=== PATIENT | female | born 2005 | race Caucasian/White ===

== ENCOUNTER 2025-04-09 16:43 | Emergency (ER) | payer BC, SELFPAY ==
--- NOTE | ~2025-04-09 | XR_ITS ---
CLINICAL HISTORY: sob 1 view chest x-ray Comparison: None provided Findings: Left base consolidation, possible pneumonia. Right lung clear without infiltrate. No pneumothorax. Heart size normal. No acute bony abnormalities. Impression: Left base consolidation, possible pneumonia This document has been electronically signed by: Selwyn De Luna MD on 04/09/2025 20:29:54
[2025-04-09 16:50] VITALS: BP 119/67; PULSE 137; RESP 16; TEMP 38.5; O2SAT 98; BMI 22.5
--- NOTE | 2025-04-09 16:53 | ED_ITS ---
HPI - Nausea/Vomiting/Diarrhea General Chief complaint: Upper Respiratory Symptoms Stated complaint: diag w/flu/seems to be getting worse Time Seen by Provider: 04/09/25 19:20 History of Present Illness HPI Narrative: Patient is a 19-year-old female presented with coughing congestion upper respiratory symptoms flu-like symptoms ongoing since Friday. Positive diffuse body ache. Positive headache. Positive cough. Fever as high as 103 at home. 101.8 in triage. No pain on urination. Does not think she is . She is on home. Related Data Previous Rx's ?Medication ?Instructions ?Recorded doxycycline hyclate 100 mg capsule 100 mg PO BID cough 7 days #14 caps 04/09/25 ondansetron 4 mg disintegrating 4 mg PO TID PRN nausea and 04/09/25 tablet vomiting 5 days #10 tabs Allergies Allergy/AdvReac Type Severity Reaction Status Date / Time No Known Allergies Allergy Verified 04/09/25 16:54 Review of Systems 2 Review of Systems: Positive nausea vomiting positive coughing upper respiratory symptoms PMFSH Past Medical History Attestation statement: The following information was validated with the patient. Social History Social History Smoked in Last 30 Days: No Use of substances other than those prescribed or required for medical reasons: No Advance Directives: No Advance Directives Information Provided: No Do you have a plan to hurt others: No Plan Patient : No Physical Exam 2 Exam: Exam: Appearance: Alert. Oriented X3. No acute distress. Eyes: Pupils equal, round and reactive to light. ENT: Pharynx normal. Neck: Normal inspection. Neck supple. No lymph nodes noted. No crepitus CVS: Normal heart rate and rhythm. Pulses normal. Normal S1 and S2 Respiratory: No respiratory distress. Breath sounds normal. No Wheezing. No rales Abdomen: Soft and nontender. No rigidity. No distention. good BS x4 Skin: Skin warm and dry. Normal skin color. Normal skin turgor. Extremities: No lower extremity edema. Neurovascular intact to all extremities. No Lacerations. No Rash Neuro: Oriented X 3. No motor deficit. No sensory deficit. Moving all extermities. No slurred speech Vital Signs: Vital Signs: Last Vital Signs Temp 99.8 F 04/09/25 19:36 Pulse 104 H 04/09/25 19:36 Resp 23 H 04/09/25 19:36 BP 125/74 04/09/25 19:36 Pulse Ox 95 04/09/25 19:36 O2 Del Method Room Air 04/09/25 19:36 BMI result Body Mass Index 22.5 Course Course Course Narrative: This is a RME preformed in triage by Ruth Morocho PA-C. Date: 04/09/25, time?456 pm. Patient presents with n/v in setting of confirmed Influenza A dx'd via [facility] ([facility]). She is on day 4, still fevers and n/v, did not take tamiflu. She has not been treating her sxs or trying to drink 19-year-old college student presents to the ED for persistent fever and GI upset. Flu-like symptoms began nine days ago (Friday). Patient initially felt slightly better earlier this week but symptoms have worsened over the past several days. Reports daily fevers since onset. She is unable to tolerate oral intake and ?can?t keep anything down,? with emesis this afternoon; denies hematemesis. Currently nauseated. Mild, non-bloody diarrhea noted. Additional associated symptoms include cough, sore throat, generalized body aches, marked fatigue, and decreased urine output (only once since last night). She states she received the flu shot this season. Patient lives in a college dormitory. Review of Systems: Constitutional: positive for fever, fatigue. HEENT: sore throat. Respiratory: cough. Gastrointestinal: nausea, vomiting (no blood), mild diarrhea. Genitourinary: decreased urine output. Musculoskeletal: generalized body aches. Work UP:?basic labs, gave zofran and tylenol (liquid) PE: moist oral mucosa, appears flu like, not septic or toxic, Will defer full ROS and PE to treating provider. Patient will continued to be monitored in the interim. Medications Administered Discontinued Medications Generic Name Dose Route Start Last Admin Trade Name Freq PRN Reason Stop Dose Admin Acetaminophen 650 mg 04/09/25 16:53 04/09/25 16:58 Acetaminophen Oral Liquid 650 Mg/20.3 Ml Solution PO 04/09/25 16:54 650 mg ONCE ONE Administration Sodium Chloride 1,000 mls @ 999 mls/hr 04/09/25 19:30 04/09/25 19:50 Ns IV 04/09/25 20:30 999 mls/hr .Q1H1M ARMINDA Administration Ketorolac Tromethamine 15 mg 04/09/25 19:29 04/09/25 19:59 Ketorolac Tromethamine 15 Mg/Ml Vial IVPUSH 04/09/25 19:30 15 mg ONCE ONE Administration Ondansetron HCl 4 mg 04/09/25 16:53 04/09/25 16:56 Ondansetron Odt 4 Mg Tab.Rapdis TRANSLINGU 04/09/25 16:54 4 mg ONCE ONE Administration Medical Decision Making Medical Decision Making MDM Narrative: Patient given IV fluids. COVID flu RSV came back positive for influenza. O2 sats 96% on room air. No distress. Symptoms x5 days. Not a good candidate for Tamiflu. Chest x-ray showed a question left lower lobe infiltrate. Will start patient on doxycycline. White count was 16. Patient to be discharged home on a course of doxycycline. Close follow-up advised. Patient's O2 sat is normal well-appearing will give an additional L of fluids and then discharge patient home. Differential Diagnosis Differential Diagnoses: The differential diagnosis associated with the presentation includes Influenza, pneumonia, COVID , dehydration Admission/Observation Consideration of admission/observation: Escalation of care including admission/observation considered Lab Data [facility] Lab Attestation statement: I reviewed the patient's lab results. 04/09/25 17:07 04/09/25 17:07 Labs: Lab Results 04/09/25 04/09/25 Range/Units 17:07 20:02 WBC 15.9 H (4.8-10.8) X10*3/uL RBC 4.58 (4.20-5.50) X10*6/uL Hgb 12.6 (12.0-16.0) g/dl Hct 37.4 (37.0-47.0) % MCV 81.7 (80.0-98.0) fL MCH 27.5 (27.0-33.0) pg MCHC 33.7 (31.0-35.0) g/dl RDW 12.9 (11.0-16.0) % Plt Count 243 (160-400) X10*3/uL MPV 10.4 (9.4-12.3) fL Immature Gran % (Auto) Cancelled Neut % (Auto) Cancelled Lymph % (Auto) Cancelled [place] % (Auto) Cancelled Eos % (Auto) Cancelled Baso % (Auto) Cancelled Lymph # (Auto) Cancelled [place] # (Auto) Cancelled Eos # (Auto) Cancelled Baso # (Auto) Cancelled Abs Immat Gran (auto) Cancelled Absolute Neuts (auto) Cancelled Absolute Nucleated RBC 0.000 (0.0-0.012) X10*3/uL Nucleated RBC % (auto) 0.0 (0.0-0.2) /100WBC Neutrophils % (Manual) 79 H (45-73) % Band Neutrophils % 13 H (3-5) % Lymphocytes % (Manual) 5 L (20-40) % Monocytes % (Manual) 3 (2-11) % Abs Neuts (Manual) 14.6 H (2.0-8.3) X10*3/uL Lymphocytes # (Manual) 0.8 L (1.2-4.9) X10*3/uL Monocytes # (Manual) 0.5 (0.1-1.2) X10*3/uL Platelet Estimate NORMAL (NORMAL) Plt Morphology Comment NORM RBC Morphology NOTED Microcytosis 1+ (5-14) /OIF Sodium 138 (135-145) mmol/L Potassium 3.8 (3.3-5.1) mmol/L Chloride 104 (96-108) mmol/L Carbon Dioxide 24 (22-29) mmol/L Anion Gap 14 (12-20) BUN 6 L (9-16) mg/dL Creatinine 0.68 (0.5-1.4) mg/dL Estim Creat Clear Calc 109.1 Estimated GFR > 60 Random Glucose 109 (60-115) mg/dL Calcium 9.0 (8.4-10.2) mg/dL Magnesium 1.8 (1.6-2.6) mg/dL Lipase 10 (8-78) U/L Beta HCG, Quant < 2 mIU/mL Influenza Type A (PCR) POSITIVE A (Negative) Influenza Type B (PCR) NEGATIVE (Negative) RSV RNA Qual (PCR) NEGATIVE (Negative) SARS-CoV-2 RNA (RT-PCR) NEGATIVE (Negative) Radiology Impression Discussion of test interpretation with radiology: I have reviewed the radiologist's reading. Independent Historian Clinical information obtained from an independent historian. History obtained from or confirmed by: Parent Prescription Management I considered prescription management with: Antibiotic Discharge Plan Discharge Clinical Impression: Influenza, Pneumonia Patient Disposition: Home, Self-Care Instructions: Influenza (DC), Community Acquired Pneumonia (DC) Prescriptions: New doxycycline hyclate 100 mg capsule 100 mg PO BID 7 Days Qty: 14 0RF ondansetron 4 mg tablet,disintegrating 4 mg PO TID PRN (Reason: nausea and vomiting) 5 Days Qty: 10 0RF Referrals: Physician,None [Primary Care Provider, Medical] Referral Note: Follow-up with your primary physician in approximately 3-5 days. Stand Alone Forms: Work/School Release Print Language: Vietnamese
[2025-04-09] MEDS: Acetaminophen Oral Liquid 650 MG/20.3 ML SOLUTION PO (16:58)
[2025-04-09 17:19] LABS: Hematocrit 37.4 % (37.0-47.0); Hemoglobin 12.6 g/dl (12.0-16.0); Mean Corpuscular HGB Conc 33.7 g/dl (31.0-35.0); Mean Corpuscular Hemoglobin 27.5 pg (27.0-33.0); Mean Corpuscular Volume 81.7 fL (80.0-98.0); NRBC Abs Auto 0.000 X10*3/uL (0.0-0.012); NRBC Pct Auto 0.0 /100WBC (0.0-0.2); Platelet Count 243 X10*3/uL (160-400); Red Blood Count 4.58 X10*6/uL (4.20-5.50); White Blood Count 15.9 X10*3/uL (4.8-10.8)
[2025-04-09 17:44] LABS: Anion Gap 14 (12-20); Blood Urea Nitrogen 6 mg/dL (9-16); Calcium 9.0 mg/dL (8.4-10.2); Carbon Dioxide 24 mmol/L (22-29); Chloride 104 mmol/L (96-108); Creatinine Clr Calc Pharmacy 109.1; Estimated Glomerular Filt Rate > 60; Lipase 10 U/L (8-78); Magnesium 1.8 mg/dL (1.6-2.6); Potassium 3.8 mmol/L (3.3-5.1); Sodium 138 mmol/L (135-145)
[2025-04-09 17:56] LABS: Neutrophils Percent Manual 79 % (45-73)
[2025-04-09 17:58] LABS: Band Neutrophils Percent 13 % (3-5); Lymphocytes Absolute Manual 0.8 X10*3/uL (1.2-4.9); Lymphocytes Percent Manual 5 % (20-40); Monocytes Absolute Manual 0.5 X10*3/uL (0.1-1.2); Monocytes Percent Manual 3 % (2-11); Neutrophils Absolute Manual 14.6 X10*3/uL (2.0-8.3)
[2025-04-09 18:02] LABS: Microcytosis 1+ (5-14) /OIF; RBC Morphology NOTED
--- OUTSIDE RECORDS SUMMARY | 2025-04-09 19:14 | XMS_ITS ---
Author Name [facility] Organization Unknown Results Test Name/Text Value Interpretation Date Range Source Resides in a congregate care setting Unknown Normal MDNEDSS First test for condition of interest Unknown Normal MDNEDSS status Unknown Normal 12/22/2023 MD CABA Patient was hospitalized bec ause of this condition Unknown Normal 12/22/2023 MDNEDSS Admitted to intensive care u nit for condition of interest Unknown Normal 12/22/2023 NATALIE S Age [age] a Normal 12/22/2023 MDNEDSS Employed in a healthcare setting Unknown Normal 024 MDNEDSS INFLUENZA VIRUS A + B AND SA RS COV 2 (COVID-19) AND RSV RNA PANEL, VEGA+PROBE, RESPIRATORY SPECIMEN Negative Normal 12/22/2023 MDNEDSS Has symptoms related to cond ition of interest Unknown Normal 12/22/2023 MDNEDSS Assessment and Plan ID Update Date Source Alert Text [place] [employer]-[id number] 05/08/2021 [place] [facility] COVID Vaccination: This patient has received the PFR, COVID-19, mRNA, LNP-S, PF, 0.3mL vaccination on 05/08/2021 with lot number UNKNOWN at [facility]. [place] [facility]-[id number] 10/31/2020 [place] [employer] COVID Vaccination: This patient has received the PFR, COVID-19, mRNA, LNP-S, PF, 0.3mL vaccination on 10/31/2020 with lot number UNKNOWN at [facility]. [place] [employer]-[id number] 10/09/2020 [place] [employer] COVID Vaccination: This patient has received the PFR, COVID-19, mRNA, LNP-S, PF, 0.3mL vaccination on 10/09/2020 with lot number UNKNOWN at [facility]. Encounters Encounter Type Encounter Reason Primary Diagnosis Location Date [facility] 01/02/2025 [facility] 08/14/2024 [facility] 08/14/2024 Ambulatory [facility] 12/22/2023 Ambulatory [facility] 09/02/2023 Ambulatory [facility] 01/29/2023 Ambulatory [facility] 12/08/2022 Ambulatory [facility] 11[facility]25/2022 Ambulatory [facility] 12/08/2021 Ambulatory [facility] 11/23/2021 Ambulatory [facility] 07/27/2021 Ambulatory [facility] 07/25/2021 Care Team Organization Name Specialty Phone Email Start Date End Da te [facility] 04/13/2024 [facility] 03/23/2024 [facility] 03/22/2024 [employer] 06/12/2023 Lela Mix MD, [facility] 05/18/2023 4 [employer] Primary Care [email or web address] 02/06/2023 [employer] Alert[employer] 08/08/2022 4 [facility] 03/30/2022 02 4 [employer] VIRGIE ALEXANDRA Primary Care [email or web address] 03/08/2022
--- OUTSIDE RECORDS SUMMARY | 2025-04-09 19:14 | XMS_ITS ---
[...] Plan ID Update Date Source Alert Text [place] [employer]-[id number] 05/08/2021 [place] [employer] COVID Vaccination: This patient has received the PFR, COVID-19, mRNA, LNP-S, PF, 0.3mL vaccination on 05/08/2021 with lot number UNKNOWN at [facility]. [place] [facility]-[id number] 10/31/2020 [place] [employer] COVID Vaccination: This patient has received the PFR, COVID-19, mRNA, LNP-S, PF, 0.3mL vaccination on 10/31/2020 with lot number UNKNOWN at [facility]. [place] [employer]-[id number] 10/09/2020 [place] [employer] COVID Vaccination: This patient has received the PFR, COVID-19, mRNA, LNP-S, PF, 0.3mL vaccination on 10/09/2020 with lot number UNKNOWN at [facility]. Encounters Encounter Type Encounter Reason Primary Diagnosis Location Date [facility] 01/02/2025 [facility] 08/14/2024 [facility] 08/14/2024 Ambulatory [facility] [...] Phone Email Start Date End Da te [facility] 04/13/2024 [facility] 03/23/2024 [facility] 03/22/2024 [employer] 06/12/2023 Lela Mix MD, [facility] 05/18/2023 4 [employer] Primary Care [email or web address] 02/06/2023 [employer] Alert[employer] 08/08/2022 4 [facility] 03/30/2022 02 4 [employer] VIRGIE ALEXANDRA Primary Care [email or web address] 03/08/2022
--- OUTSIDE RECORDS SUMMARY | 2025-04-09 19:14 | XMS_ITS | Clinical Summary ---
Author Organization [facility] Address [address] [place] [address] Care Team Providers Care So[facility] Fertility Extension Specialist Name Role Phone Christina Mena MD Primary Care Provider Unavaila ble Allergies No known active allergies Medications No known medications Social History Tobacco Use Types Packs/Day Years Used Date Smoking Tobacco: Never Assessed Comments Unknown Sex and Gender Information Value Date Recorded Sex Assigned at Not on file Legal Sex Female 3:16 PM EST Gender Identity Not on file Sexual Orientation Not on file Last Filed Vital Signs Vital Sign Reading Time Taken Comments Blood Pressure 125/68 08/22/2014 3:06 AM EDT Pulse 105 08/22/2014 3:06 AM EDT Temperature 37.2 C (98.9 F) 08/22/2014 3:06 AM EDT Respiratory Rate 22 08/22/2014 3:06 AM EDT Oxygen Saturation 99% 08/22/2014 3:06 AM EDT Inhaled Oxygen Concentration - - Weight 25.8 kg (56 lb 14.1 oz) 08/22/2014 3:06 A M EDT Height - - Body Mass Index - - Plan of Treatment Not on file Insurance [facility] CR/SH Care Teams Soil Fertility Extension Specialist Relationship Specialty Start Date End Date Christina Mena MD PCP - General Pediatrics 08/22/14
[2025-04-09 19:25] VITALS: BP 115/72; PULSE 103; RESP 18; TEMP 36.9; O2SAT 94; O2SAT 96
[2025-04-09 19:36] VITALS: BP 125/74; PULSE 104; RESP 23; TEMP 37.7; O2SAT 95
[2025-04-09 20:43] LABS: Resp Syncy Virus RNA Qual PCR NEGATIVE (Negative); SARS COV2 PCR INHOUSE NEGATIVE (Negative)
[2025-04-09 22:10] VITALS: BP 116/69; PULSE 96; RESP 18; TEMP 36.7; O2SAT 95
[2025-04-09 22:26] VITALS: BP 116/69; PULSE 96; RESP 18; TEMP 36.7; O2SAT 95
== END 2025-04-09 22:27 | disposition home or self-care (01) ==
PROVIDERS: Physician Assistant Medical; Emergency Provider Emergency Medicine Emergency Medical Services
DX: J10.1 Influenza due to other identified influenza virus with other respiratory manifestations (principal); J18.9 Pneumonia, unspecified organism; R51.9 Headache, unspecified; R05.9 Cough, unspecified; R50.9 Fever, unspecified; Z03.818 Encounter for observation for suspected exposure to other biological agents ruled out
CPT/HCPCS: 36415; 71045; 80048; 83690; 83735; 84702; 85007; 85027; 87637; 96361; 96374; 99284; 99285; J1885

== ENCOUNTER → 2025-04-09 19:20 | Outpatient (BNV) | payer BC, SELFPAY | PROVIDERS: Emergency Provider Emergency Medicine Emergency Medical Services; Visit Provider Radiology Diagnostic Radiology | DX: R91.8 Other nonspecific abnormal finding of lung field (principal) | CPT/HCPCS: 71045 ==